=== PATIENT | female | born 1945 | race Caucasian/White ===

== ENCOUNTER → 2017-02-02 | Outpatient (CLI) | payer MEDICARE ==
--- NOTE | 2017-02-14 16:20 | Diagnostic Imaging Report ---
#[id number] - MGSCRBIL #BILATERAL DIGITAL SCREENING MAMMOGRAM WITH CAD: 02/02/2017 CLINICAL: Routine screening. Comparison is made to exams dated: 12/03/2015 mammogram, 01/02/2014 mammogram and 12/30/2012 mammogram - [facility]. Current study contains 4 films. There are scattered fibroglandular elements in both breasts. Current study was also evaluated with a Computer Aided Detection (CAD) system. There are benign calcifications in both breasts. There also are benign vascular calcifications in the right breast. Additionally there is a benign intramammary node in the left breast. Stable nodular density in the left breast. No significant masses, calcifications, or other findings are seen in either breast. There has been no significant interval change. IMPRESSION: BENIGN There is no mammographic evidence of malignancy. A 1 year screening mammogram is recommended. The patient will be notified by letter of the results. Delroy Feliciano Jr., D.O. cw/:02/14/2017 13:19:18 Crystal Grower: Sarah ORLANDO(Mike)(M), [facility] letter sent: Compared to Prior B9 Mammogram BI-RADS: 2 Benign
== END ==
LOC: MAMMO 09:24
PROVIDERS: ATTEND Internal Medicine
DX: Z12.31 Encounter for screening mammogram for malignant neoplasm of breast (principal); M81.0 Age-related osteoporosis without current pathological fracture
CPT/HCPCS: G0202

== ENCOUNTER → 2018-06-18 | Outpatient (CLI) | payer MEDICARE ==
--- NOTE | 2018-06-19 08:34 | Diagnostic Imaging Report ---
Exam: Bone mineral density study. History: Menopause Comparison: None available. Discussion: Evaluation of the left hip and lumbar spine was performed. The study is technically adequate. The patient's fracture risk is compared to an age-matched control. The patient denies prior surgery/fracture of the spine, hips or forearm. Left hip femoral neck bone mineral density: 0.9 g/cm2, T-score is 0, Z-score is 2.1. Left hip total bone mineral density: 0.9 g/cm2, T-score is -0.2, Z-score is 1.6. Lumbar spine total bone mineral density: 1 g/cm2, T-score is -0.4, Z-score is 2. Impression: Bone mineralization by WHO Classification is normal, the fracture risk is not increased. Signed by: Dr. Walter Mccormick D.O., M.M.M. on 06/19/2018 8:30 AM
== END ==
LOC: MAMMO 12:49
PROVIDERS: ATTEND Internal Medicine
DX: Z12.31 Encounter for screening mammogram for malignant neoplasm of breast (principal); M81.0 Age-related osteoporosis without current pathological fracture
CPT/HCPCS: 77067; 77080

== ENCOUNTER → 2019-07-01 | Outpatient (CLI) | payer MEDICARE | LOC: MAMMO 10:24 | PROVIDERS: ATTEND Internal Medicine | DX: Z12.31 Encounter for screening mammogram for malignant neoplasm of breast (principal); M81.0 Age-related osteoporosis without current pathological fracture | CPT/HCPCS: 77067 ==

== ENCOUNTER → 2020-07-02 | Outpatient (CLI) | payer MEDICARE | LOC: MAMMO 10:33 | PROVIDERS: ATTEND Internal Medicine | DX: Z12.31 Encounter for screening mammogram for malignant neoplasm of breast (principal); M81.0 Age-related osteoporosis without current pathological fracture | CPT/HCPCS: 77067; 77080 ==

== ENCOUNTER 2021-06-19 09:32 | Emergency (ER) | payer MEDICARE ==
[~2021-06-19] VITALS: Ht 154.9 cm; Wt 90.7 kg
[2021-06-19] MEDS ORDERED: KETOROLAC TROMETHAMINE 30 MG/ML VIAL IM STA (09:51)
[2021-06-19] MEDS ORDERED: NAPROXEN250 MG PO (10:12)
[2021-06-19 10:17] VITALS: BP 142/87
== END 2021-06-19 10:29 | disposition home or self-care (01) ==
LOC: ER 10:02
DX: M54.2 Cervicalgia (principal); S16.1XXA Strain of muscle, fascia and tendon at neck level, initial encounter; X58.XXXA Exposure to other specified factors, initial encounter; I10 Essential (primary) hypertension; E03.9 Hypothyroidism, unspecified
CPT/HCPCS: 93005; 99283; J1885

== ENCOUNTER → 2021-08-01 | Outpatient (CLI) | payer MEDICARE ==
[~2021-08-01] MED LIST: NAPROXEN250 MG PO
== END ==
LOC: MAMMO 10:13
PROVIDERS: ATTEND Internal Medicine
DX: Z12.31 Encounter for screening mammogram for malignant neoplasm of breast (principal)
CPT/HCPCS: 77067

== ENCOUNTER → 2022-08-04 | Outpatient (CLI) | payer MEDICARE | LOC: MAMMO 09:54 | PROVIDERS: ATTEND Internal Medicine | DX: Z12.31 Encounter for screening mammogram for malignant neoplasm of breast (principal); Z13.820 Encounter for screening for osteoporosis | CPT/HCPCS: 77067; 77080 ==